=== PATIENT | female | born 1965 | race Caucasian/White ===

== ENCOUNTER → 2020-02-09 15:38 | Outpatient (CLI) | payer BC, SELFPAY ==
--- NOTE | ~2020-02-09 | US_ITS ---
EXAMINATION: US thyroid DATE: 02/09/2020 16:09 INDICATION: Thyroid nodule. TECHNIQUE: Multiple ultrasound images of the thyroid were obtained. COMPARISON: Ultrasound 02/27/2019, 07/22/2018 FINDINGS: The right thyroid lobe measures 3.2 x 1.2 x 1.2 cm. The left thyroid lobe measures 3.3 x 1.2 x 0.8 c m. The thyroid demonstrates diffusely heterogeneous hypoechogenicity. Vascularity is normal. There i s a macrocalcification in left thyroid lobe. No discrete nodule. IMPRESSION: 1. Heterogeneous thyroid, likely chronic lymphocytic (Zeke) thyroiditis. Reviewed, dictated and finalized at location A.
== END ==
PROVIDERS: Visit Provider Internal Medicine Endocrinology, Diabetes & Metabolism
DX: E04.1 Nontoxic single thyroid nodule (principal)
CPT/HCPCS: 76536

== ENCOUNTER 2020-09-19 16:23 | Outpatient (CLI) | payer OTHER, SELFPAY ==
--- NOTE | ~2020-09-19 | MM_ITS ---
EXAMINATION: MM screening lux BI w elly HISTORY: Screening mammogram TECHNIQUE: Craniocaudal and mediolateral oblique 3-D tomosynthesis images were obtained and synthetic 2-D images were generated. CAD analysis was submitted and interpreted. COMPARISON: 1535 2019, 05/06/2018, 7 01/2017 bilateral digital screening mammogram examinations BREAST PARENCHYMAL COMPOSITION: There are scattered areas of fibroglandular density. FINDINGS: Occasional bilateral benign calcifications are again noted, including some calcifications o f fat necrosis likely related to history of prior bilateral breast reduction mammoplasty.. There is n o evidence of suspicious mass, calcification, or architectural distortion to suggest malignancy in ei ther breast. There has been no suspicious interval change. IMPRESSION: 1. No mammographic evidence of malignancy. 2. Recommend routine screening mammography in one year. BI-RADS Category 2: Benign finding(s). Reviewed, dictated and finalized at location A. 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
== END 2020-09-19 16:24 | disposition home or self-care (01) ==
LOC: ANHIMG 16:25
PROVIDERS: PCP Internal Medicine; Visit Provider Obstetrics & Gynecology Gynecology
DX: Z12.31 Encounter for screening mammogram for malignant neoplasm of breast (principal)
CPT/HCPCS: 77063; 77067

== ENCOUNTER 2021-10-25 08:02 | Outpatient (CLI) | payer OTHER, SELFPAY ==
--- NOTE | ~2021-10-25 | MM_ITS ---
EXAMINATION: MM screening lux BI w elly HISTORY: Screening mammogram TECHNIQUE: Craniocaudal and mediolateral oblique 3-D tomosynthesis images were obtained and synthetic 2-D images were generated. CAD analysis was submitted and interpreted. COMPARISON: 09/19/2020, 07/14/2019, 05/06/2018 bilateral screening mammogram examinations BREAST PARENCHYMAL COMPOSITION: The breasts are almost entirely fatty. FINDINGS: Scattered bilateral benign calcifications, some due to fat necrosis secondary to bilateral breast reduction surgery. There is no evidence of suspicious mass, calcification, or architectural di stortion to suggest malignancy in either breast. There has been no suspicious interval change. IMPRESSION: 1. No mammographic evidence of malignancy. 2. Recommend routine screening mammography in one year. BI-RADS Category 2: Benign finding(s). Reviewed, dictated and finalized at location A.
== END 2021-10-25 08:03 | disposition home or self-care (01) ==
PROVIDERS: PCP Physician Assistant; Visit Provider Obstetrics & Gynecology Gynecology
DX: Z12.31 Encounter for screening mammogram for malignant neoplasm of breast (principal)
CPT/HCPCS: 77063; 77067

== ENCOUNTER 2022-03-21 13:29 | Emergency (ER) | payer OTHER, SELFPAY ==
[2022-03-21 13:38] VITALS: BP 117/77; PULSE 73; RESP 18; TEMP 36.4; O2SAT 99
--- NOTE | 2022-03-21 14:07 | ED.SKABFB ---
HPI - Skin/Abscess/Foreign Bdy General Chief complaint: Skin/Abscess/Foreign Body Stated complaint: Cyst Lt Shoulder Time Seen by Provider: 03/21/22 14:05 History of Present Illness HPI narrative: Evelyn Ospina is a 56 yo female with a PMH of high cholesterol, hypothyroid, who came to [facility] with a 1 cm infected cyst that was draining and needed to be fully drained She jogs and has had recurrent problems with that same area and has an appointment with surgeon on the Related Data Home Medications Medication Instructions Recorded Confirmed bupropion HCl 150 mg tablet,12 hr 150 mg PO DAILY 07/25/19 03/21/22 sustained-release fexofenadine 180 mg tablet 180 mg PO DAILY 07/25/19 03/21/22 (Allergy Relief (fexofenadine)) fluticasone propionate 50 2 spray intranasal DAILY 07/25/19 03/21/22 mcg/actuation nasal spray,suspension (Flonase Allergy Relief) levothyroxine 100 mcg tablet 100 mcg PO DAILY 07/25/19 03/21/22 (Synthroid) metformin 500 mg tablet,extended 500 mg PO DAILY 07/25/19 03/21/22 release 24 hr omega 0-qdr-ssh-fish oil 300 1 cap PO DAILY 07/25/19 03/21/22 mg-1,000 mg capsule (Fish Oil) rosuvastatin 10 mg tablet 10 mg PO DAILY 03/18/22 03/21/22 cholecalciferol (vitamin D3) 25 25 mcg PO DAILY 03/21/22 03/21/22 mcg (1,000 unit) tablet cyclosporine 0.05 % eye drops in a 2 drp EACH EYE DAILY 03/21/22 03/21/22 dropperette (Restasis) phentermine 15 mg capsule 15 mg PO DAILY 03/21/22 03/21/22 Allergies Allergy/AdvReac Type Severity Reaction Status Date / Time cefuroxime AdvReac Intermediate mouth/lips Verified 03/21/22 13:42 felt burnt Review of Systems Review of Systems: CONSTITUTIONAL: Denies fever, chills, sweats. EYES: Denies visual changes, redness, discharge. ENT: Denies rhinorrhea, congestion, sore throat, otalgia. CARDIOVASCULAR: Denies chest pain, palpitations, edema. RESPIRATORY: Denies dyspnea, wheezing, cough GASTROINTESTINAL: Denies abdominal pain, nausea, vomiting, diarrhea. GENITOURINARY: Denies dysuria, hematuria, abnormal discharge SKIN: Denies rash or itching. Cyst on upper left shoulder posterior, 1 cm NEUROLOGIC: Denies numbness, or focal weakness. PSYCHIATRIC: Denies anxiety or depression. [facility] Past Medical History Medical History High cholesterol Hypothyroid Family History Family History Mother Family history of thyroid disease Family history of obesity Family history of diabetes mellitus in first degree relative Family history of malignant neoplasm of breast in first degree relative Grandparent Family history of thyroid disease Family history of obesity Diabetes mellitus Father Family history of glaucoma Family history of diabetes mellitus in first degree relative, Onset Age: 34 Family history of congestive heart failure Sibling Family history of diabetes mellitus in first degree relative Social History Social History Smoking status: Never smoker Second hand tobacco smoke exposure: No Alcohol intake: current Substance use: never Exam Narrative: GENERAL: This is a well-nourished, well-developed patient, in mild distress. HEAD: normocephalic, atraumatic. EYES. Sclera clear/white. Vision is grossly intact. EARS: External ears normal,. Hearing grossly intact. NOSE: External nose normal without nasal discharge, nares without redness, no rhinorrhea. THROAT: Mucous membranes moist, NECK: Neck supple, non-tender CARDIOVASCULAR: Regular rate and rhythm without murmurs, gallops, or rubs. RESPIRATORY: Clear to auscultation. Breath sounds equal bilaterally. No wheezes, rales, or rhonchi. GASTROINTESTINAL: Not done SKIN: warm, intact with no suspicious lesions or rash, good texture and turgor. He has 1 cm cyst on upper posterior back on left slightly draini
== END 2022-03-21 14:24 | disposition home or self-care (01) ==
PROVIDERS: Emergency Provider Nurse Practitioner; PCP Physician Assistant
DX: L02.212 Cutaneous abscess of back [any part, except buttock and flank] (principal); E78.00 Pure hypercholesterolemia, unspecified; E03.9 Hypothyroidism, unspecified
CPT/HCPCS: 87070; 87075; 87076; 87205; 99212; G0463

== ENCOUNTER 2022-09-22 12:45 | Outpatient (CLI) | payer OTHER, SELFPAY ==
--- NOTE | ~2022-09-22 | DEXA_ITS ---
Bone Density Report Name: KENDELL DE LA TORRE Age: 57 Sex: Female Ethnicity: White Date of : 1965 Indication: postmenopausal; screening for osteoporosis; height loss; hysterectomy; Referring Provider: SHANICE AVALOS Study: Bone densitometry was performed. Exam Date: September 22, 2022 Accession number: [id number] Bone Density: Region BMD T-score Z-score Classification AP Spine(L1-L4) 0.882 -1.5 -0.2 Osteopenia Femoral Neck (Left) 0.887 0.3 1.6 Normal Total Hip (Left) 1.183 2.0 2.8 Normal Femoral Neck (Right) 0.883 0.3 1.5 Normal Total Hip (Right) 1.160 1.8 2.6 Normal Total Hip Mean 1.171 1.9 2.7 Normal World Health Organization criteria for BMD impression classify patients as: Normal (T-score at or above -1.0), Osteopenia (T-score between -1.0 and -2.5), or Osteoporosis (T-score at or below -2.5). 10-year Fracture Risk(1): Major Osteoporotic Fracture 5.2% Hip Fracture 0.1% Reported Risk Factors: [place] (), Neck BMD=0.887, BMI=36.6 (1) FRAX(R) Version 3.08. Fracture probability calculated for an untreated patient. Fracture probability may be lower if the patient has received treatment. Previous Exams: Region Exam Age BMD T-score BMD Change BMD Change Date g/cm2 vs Baseline vs Previous AP Spine (L1-L4) 09/22/2022 57 0.882 -1.5 -0.051 (-5.4%) -0.051 (-5.4%) 07/14/2019 54 0.933 -1.0 Total Hip(Left) 09/22/2022 57 1.183 2.0 -0.014 (-1.2%) -0.014 (-1.2%) 07/14/2019 54 1.196 2.1 Total Hip(Right) 09/22/2022 57 1.160 1.8 -0.014 (-1.2%) -0.014 (-1.2%) 07/14/2019 54 1.174 1.9 *Denotes significance at 95% confidence level, LSC for AP Spine = 0.022 g/cm2, LSC for Total Hip = 0.027 g/cm2 Clinical Information Provided by Patient: Has used the following medications: Vitamin D Has the following medical conditions: Hysterectomy Patient maximum height was 63 Menopause Age: 52 Drinks caffeinated beverages Onset of menses at age 11 Number of children 2 Impression: The patient has low bone mass, based on the Total Spine T-score. The patient has an estimated ten-year risk of hip fracture of 0.1% and an estimated ten-year risk of major fracture of 5.2%, based on the WHO FRAX algorithm. The BMD for the AP Spine (L1-L4) decreased, changing by -5.4% since the last DXA exam. Discussion: BONE DENSITY IS LOW AT ONE OR MORE SKELETAL SITES. This patient's lowest T-score is low at one or more sk
== END 2022-09-22 12:46 | disposition home or self-care (01) ==
PROVIDERS: PCP Physician Assistant; Visit Provider Obstetrics & Gynecology Gynecology
DX: Z78.0 Asymptomatic menopausal state (principal); M85.88 Other specified disorders of bone density and structure, other site
CPT/HCPCS: 77080

== ENCOUNTER 2022-11-07 08:25 | Outpatient (CLI) | payer OTHER, SELFPAY ==
--- NOTE | ~2022-11-07 | MM_ITS ---
EXAMINATION: MM screening lux BI w elly HISTORY: Screening mammogram, family history of breast cancer in her mother. TECHNIQUE: Craniocaudal and mediolateral oblique 3-D tomosynthesis images were obtained and synthetic 2-D images were generated. CAD analysis was submitted and interpreted. COMPARISON: 10/25/2021, 09/19/2020, 07/14/2019 BREAST PARENCHYMAL COMPOSITION: There are scattered areas of fibroglandular density. FINDINGS: Scattered benign-appearing calcifications are present. No suspicious mass, calcification, o r architectural distortion are identified in either breast to suggest malignancy. There has been no s uspicious interval change. IMPRESSION: 1. No mammographic evidence of malignancy. 2. Recommend routine screening mammography in one year. BI-RADS Category 2: Benign finding(s). Reviewed, dictated and finalized at location A.
== END 2022-11-07 08:26 | disposition home or self-care (01) ==
LOC: ANHIMG 08:27
PROVIDERS: PCP Physician Assistant; Visit Provider Nurse Practitioner
DX: Z12.31 Encounter for screening mammogram for malignant neoplasm of breast (principal)
CPT/HCPCS: 77063; 77067

== ENCOUNTER 2023-03-31 08:18 | Emergency (ER) | payer OTHER, SELFPAY ==
[2023-03-31 08:54] VITALS: BP 127/70; PULSE 75; RESP 16; TEMP 36.8; O2SAT 98
--- NOTE | 2023-03-31 09:18 | ED.URI ---
HPI - URI/Sore Throat General Chief Complaint: Upper Respiratory Infection Stated Complaint: sorethroat,bilateral ear pain Time Seen by Provider: 03/31/23 09:18 Source: patient Mode of arrival: ambulatory Limitations: no limitations History of Present Illness HPI Narrative: 57-year-old female presents with complaint of bilateral ear pain , drainage, sore throat, fatigue, body aches and headaches for 5 days. Afebrile. Taking qreh-tbn-iehlfny antihistamine to treat symptoms and doing nasal rinse. Does not use nasal sprays per direction of her ENT. Did a COVID test yesterday that was negative. Denies congestion , coughing. No chest pain or shortness of breath. all systems reviewed and negative except as noted above. Related Data Home Medications Medication Instructions Recorded Confirmed fexofenadine 180 mg tablet 180 mg PO DAILY 07/25/19 03/31/23 (Allergy Relief (fexofenadine)) metformin 500 mg tablet,extended 500 mg PO DAILY 07/25/19 03/31/23 release 24 hr omega 5-mgj-tkv-fish oil 300 1 cap PO DAILY 07/25/19 03/31/23 mg-1,000 mg capsule (Fish Oil) cholecalciferol (vitamin D3) 25 25 mcg PO DAILY 03/21/22 03/31/23 mcg (1,000 unit) tablet cyclosporine 0.05 % eye drops in a 2 drp EACH EYE DAILY 03/21/22 03/31/23 dropperette (Restasis) phentermine 15 mg capsule 15 mg PO DAILY 03/21/22 03/11/23 Allergies Allergy/AdvReac Type Severity Reaction Status Date / Time cefuroxime AdvReac Intermediate mouth/lips Verified 03/31/23 09:05 felt burnt Review of Systems Review of Systems: CONSTITUTIONAL: Denies fever, chills, or sweats. reports fatigue. EYES: Denies visual changes, redness, or discharge. ENT: denies rhinorrhea, congestion. Reports sore throat, postnasal drainage, bilateral otalgia. CARDIOVASCULAR: Denies chest pain, palpitations, or edema. RESPIRATORY: Denies cough or dyspnea. GASTROINTESTINAL: Denies abdominal pain, nausea, vomiting, or diarrhea. GENITOURINARY: Denies dysuria or hematuria. SKIN: Denies rash or itching. MUSCULOSKELETAL: Denies back pain, joint pain . Reports myalgia. NEUROLOGIC: reports headache. Denies numbness, or weakness. PSYCHIATRIC: Denies anxiety or depression. All other systems reviewed are negative, except as documented in HPI. [facility] Past Medical History Medical History High cholesterol Hypothyroid Surgical History Surgical History History of spinal surgery Hx laparoscopic cholecystectomy Family History Family History Mother Family history of thyroid disease Family history of obesity Family history of diabetes mellitus in first degree relative Family history of malignant neoplasm of breast in first degree relative Grandparent Family history of thyroid disease Family history of obesity Diabetes mellitus Father Family history of glaucoma Family history of diabetes mellitus in first degree relative, Onset Age: 34 Family history of congestive heart failure Sibling Family history of diabetes mellitus in first degree relative Social History Social History Smoking status: Never smoker Second hand tobacco smoke exposure: No Alcohol intake: current Substance use: never Lack of Transportation: No Lack of Food: Never True Current Housing: I Have Housing Concerned About Future Housing: No Difficulty Paying Gas/Electric Bills: No Difficulty Paying for Meds: No Currently Unemployed: No Education: High School Diploma/GED Difficulty w/ Childcare or Family Care: No Comments At time of signature, agree with nursing past medical, surgical, social and family history. There is no relevant family history pertinent to the presenting complaint. Exam Narrative: GENERAL: This is a well-nou
== END 2023-03-31 09:32 | disposition home or self-care (01) ==
PROVIDERS: Emergency Provider Nurse Practitioner Family; PCP Internal Medicine
DX: H65.01 Acute serous otitis media, right ear (principal); J01.90 Acute sinusitis, unspecified; E78.00 Pure hypercholesterolemia, unspecified; E03.9 Hypothyroidism, unspecified
CPT/HCPCS: 87081; 87880; 99213; G0463

== ENCOUNTER 2023-06-18 14:56 | Outpatient (CLI) | payer OTHER, SELFPAY ==
--- NOTE | ~2023-06-18 | XR_ITS ---
EXAMINATION: XR knee RT 3V DATE: 06/18/2023 15:13 INDICATION: Right knee pain. TECHNIQUE: 3 views of right knee were obtained. COMPARISON: None. FINDINGS: Bone alignment is normal. No acute fracture. There is an expansile lesion of proximal fibul ar diaphysis, likely an old healed fracture. There is mild osteoarthritis of medial and patellofemora l compartments characterized by tiny osteophytes. No knee joint effusion. IMPRESSION: 1. Mild right knee osteoarthritis. Reviewed, dictated and finalized at location E. 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
== END 2023-06-18 14:57 | disposition home or self-care (01) ==
PROVIDERS: PCP Internal Medicine; Visit Provider Physician Assistant
DX: M17.11 Unilateral primary osteoarthritis, right knee (principal)
CPT/HCPCS: 73562

== ENCOUNTER → 2023-09-11 11:13 | Outpatient (CLI) | payer OTHER, SELFPAY ==
--- NOTE | ~2023-09-11 | US_ITS ---
EXAMINATION: US thyroid DATE: 09/11/2023 11:27 INDICATION: Hypothyroidism, unspecified. TECHNIQUE: Multiple ultrasound images of the thyroid were obtained. COMPARISON: Thyroid ultrasound 02/09/2020 FINDINGS: The right thyroid lobe measures 3.5 x 1.2 x 1.3 cm. The left thyroid lobe measures 3.4 x 1.4 x 0.9 c m. The thyroid demonstrates heterogeneous echogenicity. Vascularity is normal. In the left thyroid l obe, there is a 7 mm solid, hyperechoic, wider than tall nodule with ill-defined margin without echog enic foci (TI-RADS TR3). IMPRESSION: 1. Small thyroid nodule, likely not clinically significant. No follow-up is needed. 2. Heterogeneous thyroid, likely chronic lymphocytic (Zeke) thyroiditis. Reviewed, dictated and finalized at location A. PICKER IMPRESSION: 1. Small thyroid nodule, likely not clinically significant. No follow-up is nee ded. 2. Heterogeneous thyroid, likely chronic lymphocytic (Zeke) thyroiditis.
== END ==
PROVIDERS: PCP Internal Medicine; Visit Provider Internal Medicine
DX: E78.49 Other hyperlipidemia (principal); E55.9 Vitamin D deficiency, unspecified; E04.9 Nontoxic goiter, unspecified; E03.9 Hypothyroidism, unspecified
CPT/HCPCS: 76536

== ENCOUNTER 2023-10-16 08:58 | Outpatient (CLI) | payer OTHER, SELFPAY ==
--- NOTE | ~2023-10-16 | MR_ITS ---
EXAMINATION: MR lumbar spine wo con DATE: 10/16/2023 09:40 INDICATION: Lumbar radiculopathy. Low back pain radiating down the right leg. TECHNIQUE: Magnetic resonance imaging (MRI) of the lumbar spine was performed without intravenous con trast. Sequences included sagittal T2-weighted FSE, sagittal T2-weighted FS FSE, sagittal T1-weighted FSE, and axial T2-weighted FSE. COMPARISON: None FINDINGS: Bone alignment is normal. Vertebral body heights and intervertebral disc heights are normal . The distal spinal cord signal intensity is normal. The conus medullaris is at L1-L2. The following disc levels are specifically discussed: L1-L2: The disc does not extend beyond the endplate margin. There is mild bilateral facet joint osteo arthritis. There is no neural foraminal stenosis. There is no central canal stenosis. L2-L3: The disc does not extend beyond the endplate margin. There is no facet joint osteoarthritis. T here is no neural foraminal stenosis. There is no central canal stenosis. L3-L4: There is a right foraminal extrusion. There is mild bilateral facet joint osteoarthritis. Ther e is mild right neural foraminal stenosis. There is no central canal stenosis. L4-L5: The disc is bulging and has an annular fissure. There is severe right and moderate left facet joint osteoarthritis. There is mild bilateral neural foraminal stenosis. There is mild central canal stenosis. L5-S1: There is a central protrusion. There is mild right and severe left facet joint osteoarthritis. There is no neural foraminal stenosis. There is mild central canal stenosis. IMPRESSION: 1. Mild lumbar spondylosis. Reviewed, dictated and finalized at location A. IMPRESSION: 1. Mild lumbar spondylosis.
== END 2023-10-16 08:59 ==
LOC: MICIMG 08:59
PROVIDERS: PCP Internal Medicine; Visit Provider Physician Assistant
DX: M43.06 Spondylolysis, lumbar region (principal)
CPT/HCPCS: 72148

== ENCOUNTER 2023-11-22 09:56 | Outpatient (CLI) | payer OTHER, SELFPAY ==
--- NOTE | ~2023-11-22 | XR_ITS ---
EXAMINATION: XR nasal bones min 3V DATE: 11/22/2023 10:17 INDICATION: Unspecified injury of nose, initial encounter. TECHNIQUE: 3 views of the nasal bones were obtained. COMPARISON: None. FINDINGS: Bone alignment is normal. No fracture. IMPRESSION: 1. Normal nasal bones. Reviewed, dictated and finalized at location A. IMPRESSION: 1. Normal nasal bones.
== END 2023-11-22 09:57 ==
LOC: MICIMG 09:58
PROVIDERS: PCP Physician Assistant; Visit Provider Physician Assistant
DX: S09.92XA Unspecified injury of nose, initial encounter (principal); X58.XXXA Exposure to other specified factors, initial encounter
CPT/HCPCS: 70160

== ENCOUNTER 2024-02-07 15:40 | Outpatient (CLI) | payer OTHER, SELFPAY ==
--- NOTE | ~2024-02-07 | MM_ITS ---
EXAMINATION: MM screening [facility] BI w elly HISTORY: Screening TECHNIQUE: Craniocaudal and mediolateral oblique 3-D tomosynthesis images were obtained and synthetic 2-D images were generated. CAD analysis was submitted and interpreted. COMPARISON: Comparison to multiple prior studies sequentially, with oldest reviewed study dated 01/2017. BREAST PARENCHYMAL COMPOSITION: Not Dense. The breasts are almost entirely fatty. FINDINGS: There is no evidence of suspicious mass, calcification, or architectural distortion to sugg est malignancy in either breast. There has been no suspicious interval change. IMPRESSION: 1. No mammographic evidence of malignancy. 2. Recommend routine screening mammography in one year. BI-RADS Category 1: Negative Reviewed, dictated and finalized at location B.
== END 2024-02-07 15:41 | disposition home or self-care (01) ==
LOC: ANHIMG 15:41
PROVIDERS: PCP Physician Assistant; Visit Provider Nurse Practitioner
DX: Z12.31 Encounter for screening mammogram for malignant neoplasm of breast (principal)
CPT/HCPCS: 77063; 77067

== ENCOUNTER 2025-05-22 07:52 | Outpatient (CLI) | payer OTHER, SELFPAY ==
--- OUTSIDE RECORDS SUMMARY | 2025-05-22 07:57 | XMS_ITS | Clinical Summary ---
Author Organization [facility] Address [address] [place] [address] Care Team Providers Care Care Information Associate Name Role Phone Unavailable Primary Care Provider Unavailabl e Social History Tobacco Use Types Packs/Day Years Used Date Smoking Tobacco: Never Assessed Comments Unknown Sex and Gender Information Value Date Recorded Sex Assigned at Not on file Legal Sex Female 6:00 PM CDT Gender Identity Not on file Sexual Orientation Not on file Plan of Treatment Health Maintenance Due Date Last Done Comments Cervical Cancer Screening Pa p Smear (Age 30 to 64) Every 3 Years 1964 Colorectal Cancer Screening Colonoscopy (10 Years) 1964 Annual Physical 1967 Hepatitis C 1982 DTaP, Tdap and Td Vaccines ( 1 - Tdap) 1983 Cervical Cancer Screening Pa p with HPV Testing (Age 30 to 64) Every 5 Years 1994 Cervical Cancer Screening with HPV 1994 Mammogram Screening 2004 Pneumococcal Vaccine: 50+ Ye ars (1 of 1 - PCV) 2014 Zoster Vaccines (1 of 2) 2014 COVID-19 Vaccine ( - 2024-2 6 season) 2025 Influenza Adult (#1) 2025 RSV Immunization or 60+ Years (1 - 1-dose 75+ series) 2039 Hepatitis A Vaccines Aged Out No long er eligible based on patient's age to complete this topic Meningococcal B Vaccine Aged Out No l onger eligible based on patient's age to complete this topic Meningococcal Vaccine Aged Out No ines francisca eligible based on patient's age to complete this topic RSV Immunizations Under 20 Months Aged Out No longer eligible based on patient's age to complete this topic
--- OUTSIDE RECORDS SUMMARY | 2025-05-22 07:57 | XMS_ITS | Patient Health Record ---
Author Organization [facility] Address [address] [place] [address] Care Team Providers Care Weaving Inspector Name Role Phone KiavandanaAna lim Primary Care Provider Allergies Allergen (clinical drug ingredient) Drug/Non Drug Allergy documented on EMR Reaction Allergy Type Onset Date Status simvastatin Simvastatin severe pain Drug Allergy A ctive Reason For Referral No Information Medications Medication SIG (Take, Route, Frequency, Duration) Notes Start Date End Date Status Restasis 0.05 % (Prior Auth#:[id number]) Ophthalmic; Duration: 30 Active Levothyroxine Sodium 112 MCG 1 tablet in the morning on an empty stomach Orally once daily Active Flonase Active Fish Oil 1000 MG 1 capsule Orally Onc e a day; Duration: 30 day(s) Not-Taking Tylenol 325 MG 1 tablet as needed Orally every 4 hrs prn Active Nexletol 180 MG 1 tablet Orally Once a day; Duration: 30 day(s) Active buPROPion HCl ER (SR) 200 MG 1 tablet in the morning Orally Once a day; Duration: 30 day(s) 300mg Active metFORMIN HCl ER 500 MG 1 tab(s) Oral tw o times daily Active Vitamin D 3 5000 IU 1 capsule orally qd Active Immunizations Vaccine Route Administration Date Status Comme nts Moderna Covid-19 Vaccine Unknown 09/16/2020 Administere d Moderna Covid-19 Vaccine Unknown 10/15/2020 Administere d Social History Alcohol Screening: Question Answer Notes Did you have a drink contain ing alcohol in the past year? Yes How often did you have a dri nk containing alcohol in the past year? Monthly or less (1 point) How many drinks did you have on a typical day when you were drinking in the past year? 1 or 2 (0 points) How often did you have six o r more drinks on one occasion in the past year? 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 Problem Tear film insufficiency (95687432) Dry eye (H04.129) Active confirmed Plan Of Treatment No Information Insurance Providers Payer Name Payer Address Payer Phone Subscriber Number Group Number Insured Name Patient Relationship to Insured Coverage Start Date Coverage End Date [facility] [address] [place] [address] [id number] Cailin Ospina Self - patient is the insured Medical (General) History Medical History History ICD Code hashimotos disease dry eye eye drum scar tissue thyroid nodule Surgical History Surgery Date(Month/Year) be colmenares 1997 1996 right ear drum repair as a child breast lift
== END 2025-05-22 07:53 | disposition home or self-care (01) ==
LOC: ANHAUDIO 07:52
PROVIDERS: PCP Internal Medicine; Visit Provider Internal Medicine
DX: H91.90 Unspecified hearing loss, unspecified ear (principal)
CPT/HCPCS: 92557; 92567

== ENCOUNTER 2025-05-22 09:30 | Outpatient (CLI) | payer OTHER, SELFPAY ==
--- NOTE | ~2025-05-22 | MM_ITS ---
EXAMINATION: MM screening lux BI w elly HISTORY: Screening TECHNIQUE: Craniocaudal and mediolateral oblique 3-D tomosynthesis images were obtained and synthetic 2-D images were generated. CAD analysis was submitted and interpreted. COMPARISON: Comparison to multiple prior studies sequentially, with oldest reviewed study dated 05/06/2018. BREAST PARENCHYMAL COMPOSITION: There are scattered areas of fibroglandular density. FINDINGS: There is no evidence of suspicious mass, calcification, or architectural distortion to suggest malignancy in either breast. There has been no suspicious interval change. IMPRESSION: 1. No mammographic evidence of malignancy. 2. Recommend routine screening mammography in one year. BI-RADS Category 1: Negative Reviewed, dictated and finalized at location B. DISPENSER
--- OUTSIDE RECORDS SUMMARY | 2025-05-22 09:51 | XMS_ITS | Clinical Summary ---
Author Organization [facility] Address [address] [place] [address] Care Team Providers Care Barrel Rifler Operator Name Role Phone Unavailable Primary Care Provider [...]
== END 2025-05-22 09:31 | disposition home or self-care (01) ==
PROVIDERS: PCP Internal Medicine; Visit Provider Nurse Practitioner
DX: Z12.31 Encounter for screening mammogram for malignant neoplasm of breast (principal)
CPT/HCPCS: 77063; 77067